=== PATIENT | male | born 1950 | race Caucasian/White ===

== ENCOUNTER → 2022-04-08 | Outpatient (CLI) | payer MEDICARE, BC | LOC: COL.RAD 08:39 | DX: N28.89 Other specified disorders of kidney and ureter (principal); N20.0 Calculus of kidney; K76.89 Other specified diseases of liver; I70.90 Unspecified atherosclerosis; Z95.828 Presence of other vascular implants and grafts | CPT/HCPCS: Q9967 ==

== ENCOUNTER 2022-05-25 05:18 | Inpatient (IN) | payer MEDICARE, BC ==
[2022-05-25] VITALS (11 sets, daily range): BP systolic 132–167; BP diastolic 71–94; PULSE 63–99; TEMP 97.7–98.7
[~2022-05-25] VITALS: Ht 188 cm; Wt 79.5 kg
[2022-05-25] MEDS ORDERED: AVODART 0.5MG0.5 MG PO (05:40)
[2022-05-25] MEDS ORDERED: CRESTOR20 MG PO (05:40)
[2022-05-25] MEDS ORDERED: PRINIVIL10 MG PO (05:41)
[2022-05-25] MEDS ORDERED: EFFEXOR 50M50 MG/TAB PO (05:41)
[2022-05-25] MEDS ORDERED: LUTEIN20 M1 PO (05:41)
[2022-05-25] MEDS ORDERED: ASPIRIN 32325 MG/TAB PO (05:42)
[2022-05-25] MEDS ORDERED: COLACE 100100 MG/CAP PO (10:26)
[2022-05-25] MEDS ORDERED: NORCO 325 MG-51 TAB PO (10:26)
--- NOTE | 2022-05-25 11:15 | NUR ---
Patient arrived back into bay 8 on floor bed. Incision sites clean, dry, intact. RYANNE drain has serosanguineous drainage. Ramsay catheter in place. Patient denies pain or nausea. States he is cold. Warm blankets applied. Patient states relief with warm blankets. Report received from LD Prado. cherry in from waiting room.
--- NOTE | 2022-05-25 11:25 | NUR ---
Called report to LD Lagunas. Patient be transferred to floor.
--- NOTE | 2022-05-25 11:45 | NUR ---
Patient brought up to Room 346. Vital signs stable. Patient left in the care of LD Lagunas.
[2022-05-25 12:56] LABS: BASO % 0.2 % (0.0-2.0); EOS % 0.1 % (0.0-4.0); GRAN # 10.2 K/mm3 (1.4-6.5); GRAN % 83.2 % (42.2-75.2); HEMATOCRIT 42.5 % (42.0-52.0); HEMOGLOBIN 14.2 g/dl (13.5-18.0); MEAN CELL VOLUME 90 fl (80.0-100.0); MEAN CORPUSCULAR HEMOGLOBIN 30 pg (27-31); MEAN CORPUSCULAR HGB CONC 33 g/dl (33.0-37.0); MONO % 8.3 % (1.7-9.3); PLATELET COUNT 227 K/mm3 (130-400); RED BLOOD COUNT 4.72 M/mm3 (4.20-5.60); REDCELL DISTRIBUTION WIDTH-CV 14.1 % (11.5-14.5)
[2022-05-25 13:09] LABS: CALCIUM 9.8 mg/dL (8.4-10.2); CREATININE, serum 1.33 mg/dL (0.72-1.25)
--- NOTE | 2022-05-25 15:00 | NUR ---
informed patient was throwing up. he said he had no nausea, that it was sudden. Nelly is diaphoretic. Nelly and his both said that has always had a lot of sweat any time he throws up. vitals stable. no fever.
[2022-05-25 18:49] LABS: CALCIUM 9.8 mg/dL (8.4-10.2); CREATININE, serum 1.33 mg/dL (0.72-1.25); POTASSIUM 4.8 mmol/L (3.5-4.5)
[2022-05-25 19:00] LABS: TROPONIN-I 0.034 ng/mL (0.00-0.033)
--- NOTE | 2022-05-25 19:08 | NUR ---
DR WHITMORE NOTIFIED PATIENTS TROP CAME BACK HIGH AT 0.034. DR WHITMORE ORDERED HOSPITALIST CONSULT WELL SERIAL TROPS.
--- NOTE | 2022-05-25 19:20 | NUR ---
Assessment complete. A&Ox4-drowsy. Denies pain/shortness of breath. States he is nauseas but its better after receiving phenergan. VS currently stable. LR@75ml/hr to right forearm infusing without difficulty. RYANNE drain with dark red output noted. Ramsay cath with dark yellow urine. Neuros WNL. SCDs bilat. LAP sites x4-edges well approximaged-no drainage noted. Plan of care discussed for this shift to include pain/nausea meds as needed/calling for questions/concerns. Verbalizes understanding. Call light in reach. Will monitor.
[2022-05-25 22:01] LABS: COLLECTION METHOD CLEAN CATCH
[2022-05-25 22:15] LABS: MUCOUS Present (NOT PRESENT); PH 5 (5-8); SQUAMOUS EPITHELIAL None Seen /hpf (0-10); URINE APPEARANCE Cloudy (CLEAR/HAZY); URINE BACTERIA None Seen /hpf (NONE SEEN); URINE BLOOD 3+ (NEGATIVE); URINE COLOR Yellow (YELLOW); URINE GLUCOSE 1+ (NEGATIVE); URINE KETONE Negative (NEGATIVE); URINE NITRATE Negative (NEGATIVE); URINE PROTEIN(semi-quant) 2+ (NEGATIVE); URINE RBC >50 /hpf (0-2); URINE UROBILINOGEN Negative (NEGATIVE)
--- NOTE | 2022-05-25 23:25 | NUR ---
Critical troponin called to [facility].
[2022-05-26] VITALS (7 sets, daily range): BP systolic 109–154; BP diastolic 77–92; PULSE 76–102; TEMP 97.7–98.7
--- NOTE | 2022-05-26 00:02 | NUR ---
Patient called and stated he was urinating on himself. Bed is wet underneath. No drainage noted currently. Adjusted cath tube. Bed bath given and sheets changed. Did bladder scan patient as well but nothing found. Applied quick change tom pad to monitor amount of output. Refused scheduled tylenol. Provided with clear liquids-states he is less nauseas now. Call light in reach. Will monitor.
--- NOTE | 2022-05-26 05:40 | NUR ---
Patient rested better later this shift. Denied pain and refused scheduled tylenol. Only had 200mls out in mcmahan bag-had to do a total bed change at 0000 as entire bed was soaked with urine leaking out of tube. RYANNE drain with 280mls bright red blood. Has been on bed rest per dr order. Denies current needs. Call light in reach. Will monitor.
[2022-05-26 07:01] LABS: HEMATOCRIT 34.6 % (42.0-52.0); HEMOGLOBIN 11.8 g/dl (13.5-18.0)
[2022-05-26 07:18] LABS: CREATININE, serum 1.25 mg/dL (0.72-1.25); POTASSIUM 4.5 mmol/L (3.5-4.5)
[2022-05-26 07:33] LABS: CALCIUM 9.5 mg/dL (8.4-10.2)
--- NOTE | 2022-05-26 09:14 | NUR ---
SW met with the patient to discuss discharge plan. The patient lives in [place] with his , Jess (ph#[phone]). He reports indepedence with ADLs and does not have any DME. The patient's PCP is Dr. De La Rosa at the [facility] in [place] and he receives his medications from [facility]. The patient does not have a DPOA-HC in EMR, but he states that he does have one completed and that he designated his . The patient plans to return home with his upon discharge. No additional needs at this time. *Discharge plan: home with *
--- NOTE | 2022-05-26 11:45 | NUR ---
PATIENT URINATING POST WALKER DC WITH NO COMPLAINTS OR ISSUES.
--- NOTE | 2022-05-26 14:49 | NUR ---
Swetha: No mandaen preference Situation: home health aid stopped by room on rounds Background: Pt was resting and content Assessment: Pt has no needs right now and appreciated the visit Recommendation: Visual Merchandising Assistant will follow up as needed
--- NOTE | 2022-05-26 21:00 | NUR ---
PT IS IN BED, ALERT AND ORIENTED. REPORTS NOT GETTING OUT OF BED ALL DAY. HS MEDS GIVEN. PT AMBULATED WITH STAFF AROUND THE HALLWAYS, RETURNS WITH SOME SHORTNESS OF BREATH. EDUCATED PT ON IMPORTANCE OF WALKING AND SITTING IN THE CHAIR, VERBALIZED UNDERSTANDING. RYANNE DRAIN WITH 8CC RED DRAINAGE, BULB SUCTION RESUMED. SCDS PLACED ON PT.
--- NOTE | 2022-05-26 21:13 | NUR ---
MEDICATED WITH ZOFRAN 4MG IVP FOR POTENTIAL NAUSEA WITH OXYCODONE. TOO EARLY FOR TYLENOL, OXYCODONE 5MG PO GIVEN. PT REPORTS HE ONLY TAKES THE EFFEXOR 50MG PO DAILY AT HS. HAD DOSE THIS AM, PM DOSE HELD.
[2022-05-27 03:28] VITALS: BP 153/79; PULSE 87; TEMP 97.8
--- NOTE | 2022-05-27 03:44 | NUR ---
MEDICATED WITH ZOFRAN 4MG IVP AND OXYCODONE 5MG PO. PT WORRIES HE MIGHT HAVE VOMITING IF HE DOESN'T HAVE THE ZOFRAN WITH THE NARCOTIC.
--- NOTE | 2022-05-27 06:13 | NUR ---
PT TAKES SCHEDULED ES TYLENOL NOW AND SHERBERT. EMPTIED 23CC FROM RYANNE AT THIS TIME.
[2022-05-27 07:37] VITALS: BP 148/84; PULSE 86; TEMP 98.7
[2022-05-27 11:07] VITALS: BP 157/72; PULSE 79; TEMP 98.5
--- NOTE | 2022-05-27 13:19 | NUR ---
PATIENT AND GIVEN LL DISCHARGE INSTRUCTIONS AND EDUCATION. ALL MATERIAL REVIEWED AND QUESTIONS ANSWERED. PATINTS RYANNE DRAIN WAS REMOVED AND DRESSING APPLIED. PATIENT IS STABLE. IV DISCONTINUED.
== END 2022-05-27 13:55 | disposition home or self-care (01) | DRG 661 ==
LOC: SDCO 05:18 → EDSTATUS 07:30 → SURG 07:30 → SDCO 05-26 15:21 → SURG 05-26 18:13
PROVIDERS: Student in an Organized Health Care Education/Training Program; ADMIT Urology
PROC: 8E0W4CZ Robotic Assisted Procedure of Trunk Region, Percutaneous Endoscopic Approach (ICD-10-PCS; 2022-05-25)
PROC: 0TB14ZZ Excision of Left Kidney, Percutaneous Endoscopic Approach (ICD-10-PCS; principal; 2022-05-25 07:30)
DX: N28.89 Other specified disorders of kidney and ureter (principal); I10 Essential (primary) hypertension; E78.5 Hyperlipidemia, unspecified; F32.A Depression, unspecified; F12.90 Cannabis use, unspecified, uncomplicated; R61 Generalized hyperhidrosis; R11.2 Nausea with vomiting, unspecified; Z66 Do not resuscitate; J44.9 Chronic obstructive pulmonary disease, unspecified; M48.061 Spinal stenosis, lumbar region without neurogenic claudication; G89.29 Other chronic pain; M54.9 Dorsalgia, unspecified; R79.89 Other specified abnormal findings of blood chemistry; Z86.73 Personal history of transient ischemic attack (TIA), and cerebral infarction without residual deficits; Z95.5 Presence of coronary angioplasty implant and graft; Z87.891 Personal history of nicotine dependence; Z79.82 Long term (current) use of aspirin; Z72.89 Other problems related to lifestyle
CPT/HCPCS: OP; A4314; J0690; J2405; J2550; J2704; J3010; J7120